=== PATIENT | female | born 1990 | race Caucasian/White ===

== ENCOUNTER 2022-06-14 15:55 | Emergency (ER) | payer MEDICAID ==
[2022-06-14] MEDS ORDERED: BABY ASPIRIN 81 MG CHEW PO ONE (16:00)
--- NOTE | 2022-06-14 16:00 | ERPHSYRPT ---
- History of Present Illness Time Seen by Provider: 06/14/22 16:00 Historian: patient, family Exam Limitations: no limitations Physician History: This is a 31-year-old white female patient who has no diagnosed cardiac history and presents the emergency department with sudden onset of epigastric abdominal pain that radiates through to her back. It occurred approximate 20 to 30 minutes prior to arrival. She had cucumbers for breakfast and did not have lunch. She vomited 1 time. Patient was not short of breath. Patient states she is never had anything like this before. Timing/Duration: today Location: epigastric Chest Pain Radiation: back Severity of Pain-Max: moderate Severity of Pain-Current: moderate Modifying Factors: Improves With: nothing Associated Symptoms: nausea, vomiting (X1), abdominal pain (Epigastric), No shortness of breath, No cough Prior Chest Pain/Cardiac Workup: no prior chest pain, no prior cardiac workup Nitro Today/Relief: no nitro taken today Aspirin Treatment Today: provided at home Allergies/Adverse Reactions: No Known Drug Allergies Allergy (Unverified 06/14/22 16:01) Home Medications: Escitalopram Oxalate [Lexapro] 10 mg PO DAILY 06/14/22 [History] Travel Risk - International Travel Have you traveled outside of the country in past 3 weeks: No - Coronavirus Screening Are you exhibiting any of the following symptoms?: No Close contact with a COVID-19 positive Pt in past 14-21 Days: No - Review of Systems Constitutional: No Symptoms Eyes: No Symptoms Ears, Nose, & Throat: No Symptoms Respiratory: No Symptoms Cardiac: No Symptoms Abdominal/Gastrointestinal: Abdominal Pain (The gastric), Nausea, Vomiting (X1) Genitourinary Symptoms: No Symptoms Musculoskeletal: No Symptoms Skin: No Symptoms Neurological: No Symptoms Psychological: No Symptoms Endocrine: No Symptoms Hematologic/Lymphatic: No Symptoms Immunological/Allergic: No Symptoms All Other Systems: Reviewed and Negative - Past Medical History Pertinent Past Medical History: No - Past Surgical History Past Surgical History: No - Nursing Vital Signs Nursing Vital Signs: Initial Vital Signs Temperature 97.6 F 06/14/22 15:56 Pulse Rate 74 06/14/22 15:56 Respiratory Rate 22 06/14/22 15:56 Blood Pressure 113/80 06/14/22 15:56 O2 Sat by Pulse Oximetry 99 06/14/22 15:56 Pain Scale Pain Intensity 3 - Physical Exam General Appearance: mild distress, alert, anxiety Eye Exam: PERRL/EOMI, eyes nml inspection Ears, Nose, Throat Exam: normal ENT inspection, moist mucous membranes Neck Exam: normal inspection, non-tender, supple, full range of motion Respiratory Exam: normal breath sounds, lungs clear, airway intact, No chest tenderness, No respiratory distress Cardiovascular Exam: regular rate/rhythm, normal heart sounds, normal peripheral pulses Gastrointestinal/Abdomen Exam: soft, normal bowel sounds, tenderness, No guarding (Epigastric area), No rebound Pelvic Exam: not done Rectal Exam: not done Back Exam: normal inspection, normal range of motion, No CVA tenderness, No vertebral tenderness Extremity Exam: normal inspection, normal range of motion, pelvis stable Neurologic Exam: alert, oriented x 3, cooperative, pole incisor operator II-XII nml as tested, normal mood/affect, nml cerebellar function, nml station & gait, sensation nml Skin Exam: normal color, warm, dry Lymphatic Exam: No adenopathy SpO2 Interpretation: normal O2 Delivery: Room Air - Course Nursing assessment & vital signs reviewed: Yes EKG Interpreted by Me: RATE (71), Sinus Rhythm, NORMAL AXIS, NORMAL INTERVALS, NORMAL QRS, NORMAL ST-T, Other (No acute ischemic changes.) Ordered Tests: Active Orders 24 hr Category Date Time Status Felt Finishing Supervisor STAT Care 06/14/22 16:01 Active EKG-ER Only STAT Care 06/14/22 16:00 Active IV Insertion STAT Care 06/14/22 16:04 Active Pulse Oximetry (ED) STAT Care 06/14/22 16:00 Active CHEST 1 VIEW (PORTABLE) Stat Exams 06/14/22 16:00 Ordered AMYLASE Stat Lab 06/14/22 15:55 Completed CBC W DIFF Stat Lab 06/14/22 15:55 Completed CMP Stat Lab 06/14/22 15:55 Completed D-DIMER QUANTITATIVE Stat Lab 06/14/22 15:55 Completed HCG,QUALITATIVE URINE Stat Lab 06/14/22 18:04 Completed LIPASE Stat Lab 06/14/22 15:55 Completed TROPONIN Q4H Lab 06/14/22 15:55 Completed TROPONIN Q4H Lab 06/14/22 20:00 Ordered TROPONIN Q4H Lab 06/15/22 00:00 Ordered UA W/RFX CULTURE Stat Lab 06/14/22 17:27 Completed Medication Summary Discontinued Medications Generic Name Dose Route Start Last Admin Trade Name Susan PRN Reason Stop Dose Admin Al Hydrox/Mg Hydrox/Simethicone Confirm 06/14/22 17:14 Mag Hydrox/Al Hydrox/Simeth 30 Ml Udcup Administered 06/14/22 17:15 Dose 30 ml .ROUTE .STK-MED ONE Aspirin 324 mg 06/14/22 16:00 06/14/22 16:26 Aspirin 81 Mg Tab.Chew PO 06/14/22 16:01 324 mg STAT ONE Administration Aspirin Confirm 06/14/22 16:22 Aspirin 81 Mg Tab.Chew Administered 06/14/22 16:23 Dose 324 mg .ROUTE .STK-MED ONE Famotidine 20 mg 06/14/22 16:04 06/14/22 16:26 Famotidine 20 Mg/1 Vial IV 06/14/22 16:05 20 mg STAT ONE Administration Famotidine Confirm 06/14/22 16:23 Famotidine 20 Mg/1 Vial Administered 06/14/22 16:24 Dose 20 mg IV .STK-MED ONE Hydromorphone HCl 0.5 mg 06/14/22 16:04 06/14/22 16:26 Hydromorphone 1 Mg/1ml Inj 1 Mg/Ml Syringe IV 06/14/22 16:05 0.5 mg STAT ONE Administration Hydromorphone HCl Confirm 06/14/22 16:23 Hydromorphone 1 Mg/1ml Inj 1 Mg/Ml Syringe Administered 06/14/22 16:24 Dose 1 mg .ROUTE .STK-MED ONE Sodium Chloride 1,000 mls @ 999 mls/hr 06/14/22 16:04 06/14/22 17:45 Sodium Chloride 0.9% 1000 Ml IV 06/14/22 17:04 Infused .Q1H1M STA Infusion Sodium Chloride Confirm 06/14/22 16:23 Sodium Chloride 0.9% 1000 Ml Administered 06/14/22 16:24 Dose 1,000 mls @ ud .ROUTE .STK-MED ONE Lidocaine HCl Confirm 06/14/22 17:13 Lidocaine Hcl 2% Viscous 15 Ml Udcup Administered 06/14/22 17:14 Dose 15 ml .ROUTE .STK-MED ONE Magnesium Hydroxide 45 ml 06/14/22 17:06 06/14/22 17:15 Mag Hydrx/Alum Hyd/Simeth/Lido 45 Ml Bottle PO 06/14/22 17:07 45 ml STAT ONE Administration Ondansetron HCl 4 mg 06/14/22 16:04 06/14/22 16:26 Ondansetron Hcl 4 Mg/2 Ml Vial IV 06/14/22 16:05 4 mg STAT ONE Administration Ondansetron HCl Confirm 06/14/22 16:22 Ondansetron Hcl 4 Mg/2 Ml Vial Administered 06/14/22 16:23 Dose 4 mg .ROUTE .STK-MED ONE Lab/Rad Data: Laboratory Result Diagrams 06/14/22 15:55 06/14/22 15:55 Laboratory Results 06/14/22 06/14/22 06/14/22 Range/Units 18:04 17:27 15:55 WBC (4.0-10.5) x10^3/uL RBC (4.1-5.4) x10^6/uL Hgb (12.0-16.0) g/dL Hct (35-47) % MCV (78-100) fL MCH (26-32) pg MCHC (32-36) g/dL RDW (11.5-14.0) % Plt Count (150-450) x10^3/uL MPV (7.5-11.0) fL Gran % (36.0-66.0) % Immature Gran % (Auto) (0.00-0.4) % Nucleat RBC Rel Count (0.00-0.1) % Eos # (Auto) (0-0.5) x10^3/uL Immature Gran # (Auto) (0.00-0.03) x10^3u/L Absolute Lymphs (auto) (1.0-4.6) x10^3/uL Absolute Monos (auto) (0.0-1.3) x10^3/uL Absolute Nucleated RBC (0.00-0.01) x10^3u/L Lymphocytes % (24.0-44.0) % Monocytes % (0.0-12.0) % Eosinophils % (0.00-5.0) % Basophils % (0.0-0.4) % Absolute Granulocytes (1.4-6.9) x10^3/uL Basophils # (0-0.4) x10^3/uL D-Dimer (0.0-0.50) mg/L Sodium (137-145) mmol/L Potassium (3.5-5.1) mmol/L Chloride (98-107) mmol/L Carbon Dioxide (22-30) mmol/L Anion Gap (5-15) MEQ/L BUN (7-17) mg/dL Creatinine (0.52-1.04) mg/dL Estimated GFR ML/MIN Glucose (74-106) mg/dL Calcium (8.4-10.2) mg/dL Total Bilirubin (0.2-1.3) mg/dL AST (14-36) U/L ALT (0-35) U/L Alkaline Phosphatase (38-126) U/L Troponin I (0.000-0.034) ng/mL Serum Total Protein (6.3-8.2) g/dL Albumin (3.5-5.0) g/dL Amylase 58 (30-110) U/L Lipase 37 (23-300) U/L Urinalys Dipstick Clnc MAIN LAB Urine Color YELLOW (YELLOW) Urine Appearance CLEAR (CLEAR) Urine pH 6.0 (5-6) Ur Specific [place] <=1.005 (1.005-1.025) POC Urine Protein Conf NEGATIVE (Negative) Urine Ketones NEGATIVE (NEGATIVE) Urine Nitrite NEGATIVE (NEGATIVE) Urine Bilirubin NEGATIVE (NEGATIVE) Urine Urobilinogen 0.2 (0-1) mg/dL Urine Leukocytes NEGATIVE (NEGATIVE) Urine WBC (Auto) 0-2 (0-5) /HPF Urine RBC (Auto) 0-2 (0-2) /HPF U Epithel Cells (Auto) RARE (FEW) /HPF Urine Bacteria (Auto) NONE SEEN (NEGATIVE) /HPF Urine RBC MODERATE (0-5) Charly/ul Unidentified Crystals 2-5 (NEGATIVE) /HPF Urine Mucus (Auto) SLIGHT (NEGATIVE) /HPF Ur Culture Indicated? NO Urine Glucose NEGATIVE (NEGATIVE) mg/dL Urine HCG, Qual NEGATIVE (Negative) 06/14/22 06/14/22 06/14/22 Range/Units 15:55 15:55 15:55 WBC 9.2 (4.0-10.5) x10^3/uL RBC 3.94 L (4.1-5.4) x10^6/uL Hgb 12.4 (12.0-16.0) g/dL Hct 38.3 (35-47) % MCV 97.2 (78-100) fL MCH 31.5 (26-32) pg MCHC 32.4 (32-36) g/dL RDW 14.0 (11.5-14.0) % Plt Count 350 (150-450) x10^3/uL MPV 9.7 (7.5-11.0) fL Gran % 65.9 (36.0-66.0) % Immature Gran % (Auto) 0.2 (0.00-0.4) % Nucleat RBC Rel Count 0.0 (0.00-0.1) % Eos # (Auto) 0.05 (0-0.5) x10^3/uL Immature Gran # (Auto) 0.02 (0.00-0.03) x10^3u/L Absolute Lymphs (auto) 2.44 (1.0-4.6) x10^3/uL Absolute Monos (auto) 0.56 (0.0-1.3) x10^3/uL Absolute Nucleated RBC 0.00 (0.00-0.01) x10^3u/L Lymphocytes % 26.6 (24.0-44.0) % Monocytes % 6.1 (0.0-12.0) % Eosinophils % 0.5 (0.00-5.0) % Basophils % 0.7 (0.0-0.4) % Absolute Granulocytes 6.04 (1.4-6.9) x10^3/uL Basophils # 0.06 (0-0.4) x10^3/uL D-Dimer 0.22 (0.0-0.50) mg/L Sodium 135 L (137-145) mmol/L Potassium 4.0 (3.5-5.1) mmol/L Chloride 100 (98-107) mmol/L Carbon Dioxide 26 (22-30) mmol/L Anion Gap 13.8 (5-15) MEQ/L BUN 5 L (7-17) mg/dL Creatinine 0.59 (0.52-1.04) mg/dL Estimated GFR > 60.0 ML/MIN Glucose 115 H (74-106) mg/dL Calcium 9.0 (8.4-10.2) mg/dL Total Bilirubin 0.30 (0.2-1.3) mg/dL AST 24 (14-36) U/L ALT 14 (0-35) U/L Alkaline Phosphatase 68 (38-126) U/L Troponin I (0.000-0.034) ng/mL Serum Total Protein 7.4 (6.3-8.2) g/dL Albumin 4.7 (3.5-5.0) g/dL Amylase (30-110) U/L Lipase (23-300) U/L Urinalys Dipstick Clnc Urine Color (YELLOW) Urine Appearance (CLEAR) Urine pH (5-6) Ur Specific [place] (1.005-1.025) POC Urine Protein Conf (Negative) Urine Ketones (NEGATIVE) Urine Nitrite (NEGATIVE) Urine Bilirubin (NEGATIVE) Urine Urobilinogen (0-1) mg/dL Urine Leukocytes (NEGATIVE) Urine WBC (Auto) (0-5) /HPF Urine RBC (Auto) (0-2) /HPF U Epithel Cells (Auto) (FEW) /HPF Urine Bacteria (Auto) (NEGATIVE) /HPF Urine RBC (0-5) Charly/ul Unidentified Crystals (NEGATIVE) /HPF Urine Mucus (Auto) (NEGATIVE) /HPF Ur Culture Indicated? Urine Glucose (NEGATIVE) mg/dL Urine HCG, Qual (Negative) 06/14/22 Range/Units 15:55 WBC (4.0-10.5) x10^3/uL RBC (4.1-5.4) x10^6/uL Hgb (12.0-16.0) g/dL Hct (35-47) % MCV (78-100) fL MCH (26-32) pg MCHC (32-36) g/dL RDW (11.5-14.0) % Plt Count (150-450) x10^3/uL MPV (7.5-11.0) fL Gran % (36.0-66.0) % Immature Gran % (Auto) (0.00-0.4) % Nucleat RBC Rel Count (0.00-0.1) % Eos # (Auto) (0-0.5) x10^3/uL Immature Gran # (Auto) (0.00-0.03) x10^3u/L Absolute Lymphs (auto) (1.0-4.6) x10^3/uL Absolute Monos (auto) (0.0-1.3) x10^3/uL Absolute Nucleated RBC (0.00-0.01) x10^3u/L Lymphocytes % (24.0-44.0) % Monocytes % (0.0-12.0) % Eosinophils % (0.00-5.0) % Basophils % (0.0-0.4) % Absolute Granulocytes (1.4-6.9) x10^3/uL Basophils # (0-0.4) x10^3/uL D-Dimer (0.0-0.50) mg/L Sodium (137-145) mmol/L Potassium (3.5-5.1) mmol/L Chloride (98-107) mmol/L Carbon Dioxide (22-30) mmol/L Anion Gap (5-15) MEQ/L BUN (7-17) mg/dL Creatinine (0.52-1.04) mg/dL Estimated GFR ML/MIN Glucose (74-106) mg/dL Calcium (8.4-10.2) mg/dL Total Bilirubin (0.2-1.3) mg/dL AST (14-36) U/L ALT (0-35) U/L Alkaline Phosphatase (38-126) U/L Troponin I < 0.012 (0.000-0.034) ng/mL Serum Total Protein (6.3-8.2) g/dL Albumin (3.5-5.0) g/dL Amylase (30-110) U/L Lipase (23-300) U/L Urinalys Dipstick Clnc Urine Color (YELLOW) Urine Appearance (CLEAR) Urine pH (5-6) Ur Specific [place] (1.005-1.025) POC Urine Protein Conf (Negative) Urine Ketones (NEGATIVE) Urine Nitrite (NEGATIVE) Urine Bilirubin (NEGATIVE) Urine Urobilinogen (0-1) mg/dL Urine Leukocytes (NEGATIVE) Urine WBC (Auto) (0-5) /HPF Urine RBC (Auto) (0-2) /HPF U Epithel Cells (Auto) (FEW) /HPF Urine Bacteria (Auto) (NEGATIVE) /HPF Urine RBC (0-5) Charly/ul Unidentified Crystals (NEGATIVE) /HPF Urine Mucus (Auto) (NEGATIVE) /HPF Ur Culture Indicated? Urine Glucose (NEGATIVE) mg/dL Urine HCG, Qual (Negative) - Progress Progress: improved, re-examined Air Movement: good Progress Note: 06/14/22 18:19 Chest x-ray shows no acute cardiopulmonary process. Blood Culture(s) Obtained: No Antibiotics given: No Counseled pt/family regarding: lab results, diagnosis, need for follow-up, rad results - Departure Departure Disposition: Home Clinical Impression: Epigastric pain Condition: Stable Critical Care Time: No Referrals: RAHEEM CUNNINGHAM FNP [Primary Care Provider] - Follow up/PCP as directed Additional Instructions: Avoid fatty greasy spicy foods. Take your medication as prescribed. Follow-up with your primary care provider on 06/17/2022 for further evaluation management. Return to emergency department if symptoms worsen. Prescriptions: Famotidine 20 mg [Pepcid 20 MG] 20 mg PO DAILY #10 tablet
[2022-06-14] MEDS ORDERED: Zofran 4 MG/2 ML VIAL IV ONE (16:04)
[2022-06-14] MEDS ORDERED: Sodium Chloride 0.9% 1000 ML 1,000 ML IV STA (16:04)
[2022-06-14] MEDS ORDERED: Pepcid 20 MG VIAL IV ONE ×2 (16:04→16:23)
[2022-06-14] MEDS ORDERED: Hydromorphone 1 mg/ml Injection IV ONE (16:04)
[2022-06-14 16:11] VITALS: O2SAT 100
[2022-06-14 16:21] LABS: Absolute Neutrophil Ct (ANC) 6.04 x10^3/uL (1.4-6.9); Basophil (Absolute #) 0.06 x10^3/uL (0-0.4); Eosinophil % 0.5 % (0.00-5.0); Eosinophil (Absolute #) 0.05 x10^3/uL (0-0.5); Hematocrit 38.3 % (35-47); Hemoglobin 12.4 g/dL (12.0-16.0); Lymphocyte (Absolute #) 2.44 x10^3/uL (1.0-4.6); Lymphocytes % 26.6 % (24.0-44.0); Mean Cell Volume 97.2 fL (78-100); Mean Corpuscular Hemoglobin 31.5 pg (26-32); Mean Corpuscular Hgb Concent. 32.4 g/dL (32-36); Mean Platelet Volume 9.7 fL (7.5-11.0); Monocyte (Absolute #) 0.56 x10^3/uL (0.0-1.3); Monocytes % 6.1 % (0.0-12.0); Neutrophil % 65.9 % (36.0-66.0); Platelet Count 350 x10^3/uL (150-450); Red Blood Count 3.94 x10^6/uL (4.1-5.4); White Blood Count 9.2 x10^3/uL (4.0-10.5)
[2022-06-14] MEDS ORDERED: BABY ASPIRIN 81 MG CHEW ONE (16:22)
[2022-06-14] MEDS ORDERED: Zofran 4 MG/2 ML VIAL ONE (16:22)
[2022-06-14] MEDS ORDERED: Hydromorphone 1 mg/ml Injection ONE (16:23)
[2022-06-14] MEDS ORDERED: Sodium Chloride 0.9% 1000 ML 1,000 ML ONE (16:23)
[2022-06-14 16:47] LABS: ALBUMIN 4.7 g/dL (3.5-5.0); ALKALINE PHOSPHATASE 68 U/L (38-126); AMYLASE 58 U/L (30-110); ANION GAP 13.8 MEQ/L (5-15); BLOOD UREA NITROGEN 5 mg/dL (7-17); CHLORIDE 100 mmol/L (98-107); Carbon Dioxide 26 mmol/L (22-30); Creatinine 1 0.59 mg/dL (0.52-1.04); EST GLOMERULAR FILTRATION RATE > 60.0 ML/MIN; Glucose 115 mg/dL (74-106); LIPASE 37 U/L (23-300); SGOT/AST 24 U/L (14-36); SGPT/ALT 14 U/L (0-35); SODIUM 135 mmol/L (137-145); Total Protein 7.4 g/dL (6.3-8.2)
[2022-06-14] MEDS ORDERED: GI COCKTAIL 45 ML (Maalox/Lidocaine) PO ONE (17:06)
[2022-06-14] MEDS ORDERED: XYLOCAINE VISCOUS 2% 15 ML CUP ONE (17:13)
[2022-06-14] MEDS ORDERED: MAALOX ES 30 ML UNIT DOSE ONE (17:14)
[2022-06-14 18:12] VITALS: BP 116/69; PULSE 68
[2022-06-14 18:12] LABS: Epithelial Cells RARE /HPF (FEW); Mucus SLIGHT /HPF (NEGATIVE); RBC 0-2 /HPF (0-2); WBC 0-2 /HPF (0-5)
[2022-06-14 18:16] LABS: Appearance CLEAR (CLEAR); Bilirubin NEGATIVE (NEGATIVE); Dipstick done @ ? MAIN LAB; Glucose NEGATIVE (NEGATIVE); Ketones NEGATIVE (NEGATIVE); Nitrite NEGATIVE (NEGATIVE); Protein,Urine Dip NEGATIVE (Negative); RBC MODERATE Ery/ul (0-5); Specific Gravity <=1.005 (1.005-1.025); Urobilinogen 0.2 mg/dL (0-1)
[2022-06-14 18:17] LABS: Bacteria NONE SEEN /HPF (NEGATIVE); Urine Cultured Indicated? NO
--- NOTE | 2022-06-14 22:12 | XRAY ---
Indication: Chest pain. Comparison: None Portable chest demonstrates normal heart, lungs, and bony thorax.
== END 2022-06-14 18:38 | disposition home or self-care (01) ==
LOC: ED 15:55
DX: R10.13 Epigastric pain (principal); R11.2 Nausea with vomiting, unspecified; Z79.899 Other long term (current) drug therapy
CPT/HCPCS: 36000; 36415; 71045; 80053; 81015; 81025; 82150; 83690; 84484; 85025; 85379; 93005; 93041; 94760; 96360; 96374; 96375; 99284; J1170; J2405; A9270-GY